=== PATIENT | male | born 1995 | race Two or more races ===

== ENCOUNTER 2021-01-22 12:45 | Emergency (ER) | payer MEDICAID, OTHER ==
[~2021-01-22] VITALS: Ht 172.7 cm; Wt 77.1 kg
[2021-01-22 13:46] VITALS: BP 126/77
== END 2021-01-22 14:04 | disposition home or self-care (01) ==
LOC: ER 12:45
DX: F41.0 Panic disorder [episodic paroxysmal anxiety] (principal)